=== PATIENT | female | born 1930 | race Caucasian/White ===

== ENCOUNTER 2016-08-14 05:50 | Day surgery (SDC) | payer OTHER ==
[~2016-08-14] VITALS: Ht 165.1 cm; Wt 56.7 kg
[~2016-08-14 05:50] MED LIST: AMARYL2 MG PO; ANT12.5 PO; LISINOPRIL PO; METOPROLOL SUCC25 M1 PO; TRUOS; XALOS
[2016-08-14 06:27] VITALS: BP 152/81
[2016-08-14 11:17] VITALS: BP 156/83
== END 2016-08-14 10:15 | disposition home or self-care (01) ==
LOC: DS 05:50 → OR 08:30 → DS 09:30
PROVIDERS: Ophthalmology
PROC: 08RJ3JZ Replacement of Right Lens with Synthetic Substitute, Percutaneous Approach (ICD-10-PCS; principal; 2016-08-14 09:30)
DX: H25.011 Cortical age-related cataract, right eye (principal); E11.22 Type 2 diabetes mellitus with diabetic chronic kidney disease; I12.9 Hypertensive chronic kidney disease with stage 1 through stage 4 chronic kidney disease, or unspecified chronic kidney disease; N18.9 Chronic kidney disease, unspecified; H91.90 Unspecified hearing loss, unspecified ear
CPT/HCPCS: 82962; C1780; J2001; J3490

== ENCOUNTER → 2016-09-17 | Outpatient (CLI) | payer OTHER | END | disposition home or self-care (01) | LOC: MA 08:48 | PROC: BH02ZZZ Plain Radiography of Bilateral Breasts (ICD-10-PCS; principal; 2016-09-17) | DX: R92.8 Other abnormal and inconclusive findings on diagnostic imaging of breast (principal) | CPT/HCPCS: G0204 ==